=== PATIENT | female | born 1930 ===

== ENCOUNTER 2017-06-09 13:51 | Day surgery (SDC) | payer MEDICARE ==
[2017-06-09 14:20] VITALS: BMI 20.1
[2017-06-09] MEDS ORDERED: Iohexol 240 (50 ml) ONE (14:56)
[2017-06-09] MEDS ORDERED: Indomethacin 50 MG Suppository PR ONE (14:56)
[2017-06-09] MEDS ORDERED: Simethicone 40 mg/0.6 ml Liquid (30 ml) ONE (14:58)
[2017-06-09] MEDS ORDERED: EPINEPHrine 1 mg/ml (1:1000) Inj ONE (15:07)
[2017-06-09] MEDS ORDERED: Phenylephrine 10 mg/ml Inj ONE (15:07)
[2017-06-09] MEDS ORDERED: Succinylcholine Chloride 20 mg/ml Syr (5 ml) IV ONE (15:07)
[2017-06-09] MEDS ORDERED: Etomidate 20 mg/10ml Inj IV ONE (15:07)
[2017-06-09] MEDS ORDERED: ePHEDrine 50 mg/ml Inj ONE (15:07)
[2017-06-09] MEDS ORDERED: Lactated Ringer's 1,000 ML IV ONE (15:14)
[2017-06-09 18:04] VITALS: BP 140/65; PULSE 67; RESP 13; O2SAT 99
[2017-06-09 18:23] VITALS: TEMP 97
--- NOTE | 2017-06-10 13:31 | RAD ---
PROCEDURE: Intraoperative Fluoroscopy. HISTORY: BILIARY STRICTURE FINDINGS: Fluoroscopic assistance was provided for biliary stent placement. Total fluoroscopic time (continuous mode) utilized during the procedure: 52.9 seconds. Please refer to the operative report from
== END 2017-06-09 18:18 | disposition designated cancer center or children's hospital (05) ==
LOC: C.ENDO 13:51
PROVIDERS: ATTEND Internal Medicine
DX: C25.0 Malignant neoplasm of head of pancreas (principal); K83.1 Obstruction of bile duct